=== PATIENT | female | born 1970 | race African-American/Black ===

== ENCOUNTER 2018-04-09 13:12 | Emergency (ER) | payer OTHER ==
[2018-04-09 13:17] VITALS: BP 108/63; PULSE 96; TEMP 98.3; BMI 23.3
--- NOTE | 2018-04-09 14:54 | PDOC ---
History of Present Illness - History of Present Illness Initial Comments: 04/09/18 14:47 47 yo F with h/o vertigo, and iron deficient anemia who p/w FERNANDEZ. Patient reports 3 days of non pulsatile, dull, holocranial distribution FERNANDEZ, associated with nausea. Endorses photophobia, lacrimation, sneezing. Denies photpophobia, neck stiffness, vision change. Also endorses lightheadedness x 1 day, which prompted ED encounter. Denies vertiginous symptoms,. but lightheadedness elicited with sudden head movement and improved with resting position. + nausea without vomiting, and parastheias BL LE. Pain not improved with Ibuprofen x 2 days. Patient with h/o symptomatic anemia requiring admission, but not transfusions. Patient denies neck stiffness, neck pain, vision loss, tinnitus, hearing loss, F/C, CP, cough, wheezing, SOB, urinary complaints, abdominal pain, diarrhea, constipation, weakness PMHx: as noted above ROS: as noted SHx: Denies Etoh, tobacco, IVDA. Allergies: NKDA <Roberto Duque - Last Filed: 04/09/18 18:59> <Niko Wheeler - Last Filed: 04/09/18 19:53> - General Chief Complaint: Headache Stated Complaint: HEADACHE Time Seen by Provider: 04/09/18 13:42 Past History - Past Medical History Anemia: Yes (Low platelets) COPD: No - Suicide/Smoking/Psychosocial Hx Smoking History: Never smoked Number of Cigarettes Smoked Daily: 0 Information on smoking cessation initiated: No Hx Alcohol Use: No Drug/Substance Use Hx: No Substance Use Type: None <Roberto Duque - Last Filed: 04/09/18 18:59> <Niko Wheeler - Last Filed: 04/09/18 19:53> - Past Medical History Allergies/Adverse Reactions: Allergies Allergy/AdvReac Type Severity Reaction Status Date / Time No Known Allergies Allergy Verified 04/09/18 13:17 Home Medications: Ambulatory Orders Ferrous Sulfate [Feosol] 325 mg PO BID #30 tablet 04/29/14 Cholecalciferol (Vitamin D3) [Vitamin D3] 0 unit PO WEEKLY 07/12/14 Ferrous Sulfate 325 mg PO TID 7 Days #21 tablet MDD 3 tab 04/09/18 Review of Systems - Review of Systems Comments:: 04/09/18 14:58 GENERAL/CONSTITUTIONAL: No fever or chills. No weakness. HEAD, EYES, EARS, NOSE AND THROAT: No change in vision. No ear pain or discharge. No sore throat. CARDIOVASCULAR: No chest pain or shortness of breath RESPIRATORY: No cough, wheezing, or hemoptysis. GASTROINTESTINAL: + nausea. No diarrhea or constipation. GENITOURINARY: No dysuria, frequency, or change in urination. MUSCULOSKELETAL: No joint or muscle swelling or pain. No neck or back pain. SKIN: No rash NEUROLOGIC: + Headache, dizziness, vertigo, change in strength/sensation. No loss of consciousness. ENDOCRINE: No increased thirst. No abnormal weight change HEMATOLOGIC/LYMPHATIC: + anemia. No easy bleeding, or history of blood clots. ALLERGIC/IMMUNOLOGIC: No hives or skin allergy. <Roberto Duque - Last Filed: 04/09/18 18:59> *Physical Exam - Vital Signs Last Vital Signs Temp Pulse Resp BP Pulse Ox 98.3 F 96 H 18 108/63 100 04/09/18 13:15 04/09/18 13:15 04/09/18 13:15 04/09/18 13:15 04/09/18 13:15 - Physical Exam Comments: 04/09/18 14:59 GENERAL: Awake, alert, and fully oriented, in no acute distress HEAD: No signs of trauma, normocephalic, atraumatic EYES: PERRLA, EOMI, sclera anicteric, conjunctiva clear ENT: Auricles normal inspection, hearing grossly normal, nares patent, oropharynx clear without exudates. Moist mucosa NECK: Normal ROM, supple, no lymphadenopathy, JVD, or masses LUNGS: No distress, speaks full sentences, clear to auscultation bilaterally HEART: Regular rate and rhythm, normal S1 and S2, no murmurs, rubs or gallops, peripheral pulses normal and equal bilaterally. EXTREMITIES : Normal inspection, Normal range of motion, no edema. No clubbing or cyanosis. NEUROLOGICAL: + Dizziness reproducible with lateral neck rotation. Absent nystagmus. Cranial nerves II through XII grossly intact. JENNIFER, and HTS intact. Absent dysmetria on FTN. Normal speech, normal gait, no focal sensorimotor deficits SKIN: Warm, Dry, normal turgor, no rashes or lesions noted <Roberto Duque - Last Filed: 04/09/18 18:59> - Vital Signs Last Vital Signs Temp Pulse Resp BP Pulse Ox 98.3 F 96 H 18 108/63 100 04/09/18 13:15 04/09/18 13:15 04/09/18 13:15 04/09/18 13:15 04/09/18 13:15 <Niko Wheeler - Last Filed: 04/09/18 19:53> ED Treatment Course - LABORATORY CBC & Chemistry Diagram: 04/09/18 15:32 04/09/18 15:32 <Roberto Duque - Last Filed: 04/09/18 18:59> - LABORATORY CBC & Chemistry Diagram: 04/09/18 15:32 04/09/18 15:32 - ADDITIONAL ORDERS Additional order review: Laboratory Results 04/09/18 04/09/18 15:32 15:32 Sodium 139 Potassium 4.4 Chloride 107 Carbon Dioxide 25 Anion Gap 7 L BUN 10 Creatinine 0.7 Creat Clearance w eGFR > 60 Random Glucose 96 Calcium 8.6 Total Bilirubin 0.2 AST 13 L ALT 13 Alkaline Phosphatase 41 L Total Protein 7.7 Albumin 3.7 Serum , Qual Negative 04/09/18 15:32 RBC 3.14 L MCV 75.4 L MCHC 31.5 L RDW 16.9 H MPV 9.9 D Neutrophils % 71.5 Lymphocytes % 21.6 D Monocytes % 5.2 Eosinophils % 1.0 D Basophils % 0.7 - Medications Given in the ED: ED Medications Discontinued Medications Generic Name Dose Route Start Last Admin Trade Name Bcq PRN Reason Stop Dose Admin Acetaminophen 1,000 mg 04/09/18 14:56 04/09/18 15:49 Tylenol - PO 04/09/18 14:57 Not Given ONCE ONE Acetaminophen 1,000 mg 04/09/18 14:55 04/09/18 15:48 Ofirmev Injection - IVPB 04/09/18 14:56 1,000 mg ONCE ONE Administration Diphenhydramine HCl 25 mg 04/09/18 14:56 04/09/18 15:48 Benadryl - PO 04/09/18 14:57 25 mg ONCE ONE Administration Sodium Chloride 1,000 mls @ 1,000 mls/hr 04/09/18 15:05 04/09/18 15:49 Normal Saline - IV 04/09/18 16:04 1,000 mls/hr ASDIR STA Administration Meclizine HCl 25 mg 04/09/18 16:51 04/09/18 17:33 Antivert - PO 04/09/18 16:52 25 mg ONCE ONE Administration Metoclopramide HCl 10 mg 04/09/18 14:56 04/09/18 15:48 Reglan - PO 04/09/18 14:57 10 mg ONCE ONE Administration <Niko Wheeler - Last Filed: 04/09/18 19:53> Medical Decision Making - Medical Decision Making 04/09/18 14:58 47 yo F with h/o vertigo, and iron deficient anemia who p/w headache and lightheadedness. VSS, AF. Absent neuro deficits. Possible vertigo, likely peripheral vs. central d/t positional nature, and absent symptoms at rest. Will consider BPPV. Low suspicion CVA/TIA. Will also consider tension type FERNANDEZ vs. migraine without aura. Low suspicion SAH, meningitis. Will assess for anemia, electrolyte abnml, toxic or metabolic derangements, or acid-base disturbances. ED Course: CBC,CMP, Urine preg, UA Reglan, diphenhydramine, Tylenol, NS 04/09/18 18:06 Patient with continued FERNANDEZ 04/09/18 18:07 H/H: 7.5/23.6 ( prior iron transfusion at H/H: 7.1/22.8 ) CMP: Unremarkable HCG: neg 04/09/18 18:12 Contacted Heme/Onc general practitioner answering service. Awaiting call back. Per Dr. Driver. Patient to recieve iron supplementation PO, but will take 1 week to increase H/H vs. patient receiving PRBC for symptomatic anemia. 04/09/18 19:01 Iron supplementation sent to pharmacy. Patient symptoms improved. Advised to f/ u with PMD. <Roberto Duque - Last Filed: 04/09/18 18:59> *DC/Admit/Observation/Transfer - Attestations Physician Attestion: 04/09/18 19:02 I attest to the information provided in this note. <Roberto Duque - Last Filed: 04/09/18 18:59> <Niko Wheeler - Last Filed: 04/09/18 19:53> Diagnosis at time of Disposition: Vertigo Anemia Qualifiers: Anemia type: iron deficiency Iron deficiency anemia type: inadequate dietary iron intake Qualified Code(s): D50.8 - Other iron deficiency anemias - Prescriptions Prescriptions: Ferrous Sulfate 325 mg PO TID 7 Days #21 tablet MDD 3 tab - Patient Instructions Printed Discharge Instructions: DI for Iron Deficiency Anemia-Adult Additional Instructions: Please return to the emergency department with any new or worsening symptoms or concerns. Please follow up with your primary care physician within 72 hours. Please take iron three times per day. - Post Discharge Activity Forms/Work/School Notes: Back to Work
[2018-04-09] MEDS ORDERED: ACETAMINOPHEN 1000 MG/100 ML VIAL (NON FORMULARY) IVPB ONE (14:55)
[2018-04-09] MEDS ORDERED: METOCLOPRAMIDE HCL 10 MG TABLET (FP) PO ONE (14:56)
[2018-04-09] MEDS ORDERED: diphenhydrAMINE HCL 25 MG CAPSULE (FP) PO ONE ×2 (14:56→15:35)
[2018-04-09] MEDS ORDERED: ACETAMINOPHEN 500 MG TABLET (FP) PO ONE (14:56)
[2018-04-09] MEDS ORDERED: SODIUM CHLORIDE 1,000 ML IV STA (15:05)
[2018-04-09] MEDS ORDERED: METOCLOPRAMIDE HCL INJECTION 10 MG/2 ML VIAL ONE (15:34)
[2018-04-09] MEDS ORDERED: ACETAMINOPHEN INJECTION 100 ML IVPB ONE (15:35)
--- NOTE | 2018-04-09 15:41 | PDOC ---
Attending Attestation - Resident Resident Name: NetoDarrylRoberto - ED Attending Attestation I have performed the following: I have examined & evaluated the patient, The case was reviewed & discussed with the resident, I agree w/resident's findings & plan, Exceptions are as noted - HPI HPI: 04/09/18 16:02 47 year old female patient with history of intermittent chronic headaches, vertigo, vitamin B-12 and iron deficiency presents with headache and dizziness. Patient reports that she has had these symptoms multiple times prior in the past. Stated that recently she developed a tension-like headache with photophobia. However no neck stiffness or fevers. Stated that she had associated vertigo and dizziness. Has not taken any medications along with it. Denies recent illnesses, fevers, chills, cough, vomiting, diarrhea. Came to the ER for further evaluation. - Physicial Exam PE: 04/09/18 16:03 GENERAL: Awake, alert, and fully oriented, in no acute distress HEAD: No signs of trauma EYES: EOMI, sclera anicteric, conjunctiva clear ENT: Auricles normal inspection, hearing grossly normal, nares patent, NECK: Normal ROM, supple, no lymphadenopathy LUNGS: Breath sounds equal, clear to auscultation bilaterally. No wheezes, and no crackles HEART: Regular rate and rhythm, normal S1 and S2, no murmurs, rubs or gallops ABDOMEN: Soft, nontender. No guarding, no rebound. No masses EXTREMITIES: Normal range of motion, no edema. No clubbing or cyanosis. No cords, erythema, or tenderness NEUROLOGICAL: Cranial nerves II through XII intact. Normal speech, 5/5 strength upper and lower extremities. Sensation intact throughout. No pronator drift. FTN normal. SKIN: Warm, Dry, normal turgor, no rashes or lesions noted. - Medical Decision Making 04/09/18 16:05 Vital Signs Temp Pulse Resp BP Pulse Ox 98.3 F 96 H 18 108/63 100 04/09/18 13:15 04/09/18 13:15 04/09/18 13:15 04/09/18 13:15 04/09/18 13:15 I suspect patient likely has migraine features and peripheral vertigo. We'll treat symptoms with medications and reassess. If the workup is unremarkable the patient reports feeling better, we'll discharge her and have her follow-up with an outpatient neurologist. 04/09/18 17:38 CBC, BMP 04/09/18 15:32 04/09/18 15:32 CMP Sodium 139 mmol/L (136-145) 04/09/18 15:32 Potassium 4.4 mmol/L (3.5-5.1) 04/09/18 15:32 Chloride 107 mmol/L (98-107) 04/09/18 15:32 Carbon Dioxide 25 mmol/L (21-32) 04/09/18 15:32 Anion Gap 7 MMOL/L (8-16) L 04/09/18 15:32 BUN 10 mg/dL (7-18) 04/09/18 15:32 Creatinine 0.7 mg/dL (0.55-1.02) 04/09/18 15:32 Creat Clearance w eGFR > 60 (>60) 04/09/18 15:32 Random Glucose 96 mg/dL (74-106) 04/09/18 15:32 Calcium 8.6 mg/dL (8.5-10.1) 04/09/18 15:32 Total Bilirubin 0.2 mg/dL (0.2-1.0) 04/09/18 15:32 AST 13 U/L (15-37) L 04/09/18 15:32 ALT 13 U/L (12-78) 04/09/18 15:32 Alkaline Phosphatase 41 U/L (45-117) L 04/09/18 15:32 Total Protein 7.7 g/dl (6.4-8.2) 04/09/18 15:32 Albumin 3.7 g/dl (3.4-5.0) 04/09/18 15:32 Serum , Qual Negative 04/09/18 15:32 Hgb is 7.5 On on her prior blood work from several years ago, the patient has noted to have hemoglobin in the mid sevens. The patient did report prior that she was told she may need blood transfusions but in all cases she has never received the punctures fusion. Given the circumstances, will touch base with the patient. Patient reports that since 0.5 is around her baseline, will discharge patient with private care physician follow-up if her headache and vertigo symptoms have improved. If the patient reports that this is new, will discuss findings in regards to transfusing the patient. 04/09/18 18:23 Pt states that she has been given IV infusion of iron before for these situations. And the patient's headache has not improved. Will trial fiorcet. Consult hematology for further disposition regarding the anemia. 04/09/18 18:58 Dr. Duque had spoken with Dr. Gregory. Dr. Gregory states that patient can get either PRBC or PO iron. Pt prefers PO iron and would like to go home. Pt states that she feels well enough to go home. Will d/c her home with follow up with neurology and hematology.
[2018-04-09 16:33] LABS: ALBUMIN 3.7 g/dl (3.4-5.0); ALK PHOS 41 U/L (45-117); ANION GAP 7 MMOL/L (8-16); BILIRUBIN,TOTAL 0.2 mg/dL (0.2-1.0); BLOOD UREA NITROGEN 10 mg/dL (7-18); CALCIUM 8.6 mg/dL (8.5-10.1); CHLORIDE 107 mmol/L (98-107); CO2 25 mmol/L (21-32); CREATININE 0.7 mg/dL (0.55-1.02); GLUCOSE,RANDOM 96 mg/dL (74-106); POTASSIUM 4.4 mmol/L (3.5-5.1); SGOT/AST 13 U/L (15-37); SGPT/ALT 13 U/L (12-78); SODIUM 139 mmol/L (136-145); TOT PROT 7.7 g/dl (6.4-8.2)
[2018-04-09] MEDS ORDERED: MECLIZINE HCL 25 MG TABLET (FP) PO ONE (16:51)
[2018-04-09] MEDS ORDERED: MECLIZINE HCL 25 MG TABLET (FP) ONE (17:19)
[2018-04-09 17:23] LABS: BASO % 0.7 % (0-2.0); HEMATOCRIT 23.6 % (32.4-45.2); HEMOGLOBIN 7.5 GM/dL (10.7-15.3); LYMPH % 21.6 % (8-40); MCH 23.8 pg (25.7-33.7); MCHC 31.5 g/dl (32.0-36.0); MEAN CELL VOLUME 75.4 fl (80-96); MEAN PLT VOLUME 9.9 fl (7.5-11.1); MONO % 5.2 % (3.8-10.2); NEUT % 71.5 % (42.8-82.8); PLATELET COUNT 265 K/MM3 (134-434); RBC 3.14 M/mm3 (3.60-5.2); RDW 16.9 % (11.6-15.6); WHITE BLOOD COUNT 6.5 K/mm3 (4.0-10.0)
[2018-04-09] MEDS ORDERED: ACETAMINOPHEN/CAFFEINE/BUTALBITAL 1 TAB PO ONE (18:06)
[2018-04-09] MEDS ORDERED: ACETAMINOPHEN/CAFFEINE/BUTALBITAL 1 TAB ONE (19:55)
== END 2018-04-09 20:00 | disposition home or self-care (01) ==
LOC: JER 13:12
PROC: 3E0337Z Introduction of Electrolytic and Water Balance Substance into Peripheral Vein, Percutaneous Approach (ICD-10-PCS; principal; 2018-04-09)
PROC: 3E033NZ Introduction of Analgesics, Hypnotics, Sedatives into Peripheral Vein, Percutaneous Approach (ICD-10-PCS; 2018-04-09)
DX: D50.8 Other iron deficiency anemias (principal); R42 Dizziness and giddiness
CPT/HCPCS: 36415; 80053; 84703; 85025; 96361; 96374; 99282-25; J0131; J7030

== ENCOUNTER 2020-04-02 10:11 | Emergency (ER) | payer OTHER ==
[2020-04-02 10:18] VITALS: TEMP 98.5; BMI 23.8
--- NOTE | 2020-04-02 10:37 | PDOC ---
History of Present Illness - General Chief Complaint: Lightheaded Stated Complaint: VERTIGO Time Seen by Provider: 04/02/20 10:36 - History of Present Illness Initial Comments: HPI: 49yo F with PMH of vertigo, fibroids, anemia, thyroid disorder presenting with vertigo. Patient reports she has had vertigo like this previously. She states she was treated with an iron infusion which improved her symptoms because she associates her vertigo with her anemia. Patient has a baseline hemoglobin of 8 and is supposed to take iron pills but is not adherent to this therapy. Had two heavy menstrual periods this month, likely due to fibroids. 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 Denies syncope or falls, but feels like she is too unbalanced to walk without assistance. This episode of syncope started on Wednesday and worsened going into Wednesday. Patient has been nauseous and unable to tolerate po. Had one episode of NBNB emesis today. Denies fever, but endorsing chills. PCP: Dr. Hurley (unknown last name) pumper helper: vertigo ROS: Constitutional: no fever, +chills HEENT: no throat pain, no dysphagia Cardiovascular: no chest pain, no palpitations Respiratory: no cough, no shortness of breath Gastrointestinal: no abdominal pain, +nausea Genitourinary: no dysuria, no hematuria Musculoskeletal: no myalgia, no arthralgia Skin: no rash, no itching Neurologic: no headache, +vertigo Psych: no agitation, no anxiety PE: General: Awake, alert, and fully oriented, laying in bed with sunglasses on Head: No signs of trauma Eyes: EOMI, sclera anicteric ENT: Moist mucus membranes Neck: Normal ROM, supple Lungs: Lungs clear, Normal breath sounds Cardio: Regular rhythm, S1 and S2 present Abdomen: Soft, nontender. No guarding, no rebound, no masses Extremities: Normal range of motion, Distal pulses present Skin: Warm, Dry, normal turgor Neurologic: Cranial nerves II through XII intact. Normal speech, sensation, strength, [id number] coordination. Patient deferred gait exam. ED Course/MDM: DDX including but not limited to vertigo, peripheral vs central; brain bleed; anemia; metabolic derangement Labs, EKG Reglan Fluids Meclizine Will reassess 04/02/20 11:22 EKG: rate 81, QTc 455, sinus CBC WBC 4.9 K/mm3 (4.0-10.0) 04/02/20 11:00 RBC 3.54 M/mm3 (3.60-5.2) L 04/02/20 11:00 Hgb 10.5 GM/dL (10.7-15.3) L 04/02/20 11:00 Hct 31.7 % (32.4-45.2) L D 04/02/20 11:00 MCV 89.7 fl (80-96) 04/02/20 11:00 MCH 29.8 pg (25.7-33.7) D 04/02/20 11:00 MCHC 33.2 g/dl (32.0-36.0) 04/02/20 11:00 RDW 13.9 % (11.6-15.6) D 04/02/20 11:00 Plt Count 217 K/MM3 (134-434) 04/02/20 11:00 MPV 8.7 fl (7.5-11.1) D 04/02/20 11:00 Absolute Neuts (auto) 4.0 K/mm3 (1.5-8.0) 04/02/20 11:00 Neutrophils % 81.5 % (42.8-82.8) 04/02/20 11:00 Lymphocytes % 12.8 % (8-40) D 04/02/20 11:00 Monocytes % 4.9 % (3.8-10.2) 04/02/20 11:00 Eosinophils % 0.4 % (0-4.5) 04/02/20 11:00 Basophils % 0.4 % (0-2.0) 04/02/20 11:00 Nucleated RBC % 0 % (0-0) 04/02/20 11:00 No leukocytosis Anemia present but above patient's baseline CMP Sodium 138 mmol/L (136-145) 04/02/20 11:00 Potassium 3.7 mmol/L (3.5-5.1) 04/02/20 11:00 Chloride 106 mmol/L (98-107) 04/02/20 11:00 Carbon Dioxide 20 mmol/L (21-32) L 04/02/20 11:00 Anion Gap 11 MMOL/L (8-16) 04/02/20 11:00 BUN 8.8 mg/dL (7-18) 04/02/20 11:00 Creatinine 0.8 mg/dL (0.55-1.3) 04/02/20 11:00 Est GFR (CKD-EPI)AfAm 98.93 04/02/20 11:00 Est GFR (CKD-EPI)NonAf 85.36 04/02/20 11:00 Random Glucose 94 mg/dL (74-106) 04/02/20 11:00 Calcium 9.2 mg/dL (8.5-10.1) 04/02/20 11:00 Total Bilirubin 0.4 mg/dL (0.2-1) 04/02/20 11:00 AST 17 U/L (15-37) 04/02/20 11:00 ALT 15 U/L (13-61) 04/02/20 11:00 Alkaline Phosphatase 43 U/L (45-117) L 04/02/20 11:00 Total Protein 7.4 g/dl (6.4-8.2) 04/02/20 11:00 Albumin 3.7 g/dl (3.4-5.0) 04/02/20 11:00 Electrolytes unremarkable Normal Cr No transaminitis Patient with continued dizziness; still unable to ambulate without significant support CT Head ordered 2mg valium ordered Will reassess 04/02/20 16:54 Patient reports significant improvement in her dizziness Sunglasses are now off Still ambulating with assistance, but asking to go home. Says she has family members who will help her. To follow up with primary care physician Return precautions Stable for discharge 04/02/20 18:52 Past History - Medical History Allergies/Adverse Reactions: Allergies Allergy/AdvReac Type Severity Reaction Status Date / Time No Known Allergies Allergy Verified 04/02/20 10:15 Home Medications: Ambulatory Orders Ferrous Sulfate [Feosol] 325 mg PO BID #30 tablet 04/29/14 Cholecalciferol (Vitamin D3) [Vitamin D3] 0 unit PO WEEKLY 07/12/14 Ferrous Sulfate 325 mg PO TID 7 Days #21 tablet MDD 3 tab 04/09/18 Meclizine HCl [Antivert -] 25 mg PO DAILY PRN #14 tablet 04/02/20 Anemia: Yes (Low platelets) COPD: No - Reproductive History Is Patient Now?: No - Immunization History Immunization Up to Date: Yes - Psycho-Social/Smoking History Smoking History: Never smoked Number of Cigarettes Smoked Daily: 0 - Substance Abuse Hx (Audit-C & DAST Scrn) How often the patient has a drink containing alcohol: Never Score: In Men: 4 or > Positive; In Women: 3 or > Positive: 0 Screen Result (Pos requires Nsg. Audit-10AR): Negative In the last yr the pt used illegal drug/Rx for NonMed reason: No Score: Yes response is considered Positive: 0 Screen Result (Positive result requires Nsg. DAST-10): Negative *Physical Exam - Vital Signs Last Vital Signs Temp Pulse Resp BP Pulse Ox 98.5 F 86 20 110/62 100 04/02/20 10:16 04/02/20 10:16 04/02/20 10:16 04/02/20 10:16 04/02/20 10:16 ED Treatment Course - LABORATORY CBC & Chemistry Diagram: 04/02/20 11:00 04/02/20 11:00 Discharge - Discharge Information Problems reviewed: Yes Clinical Impression/Diagnosis: Vertigo Condition: Improved Disposition: HOME - Additional Discharge Information Prescriptions: Meclizine HCl [Antivert -] 25 mg PO DAILY PRN #14 tablet PRN Reason: Vertigo - Follow up/Referral Referrals: Ambreen Clay MD [Primary Care Provider] - - Patient Discharge Instructions Patient Printed Discharge Instructions: DI for Vertigo Additional Instructions: You came into the emergency department for vertigo. Labs and CT imaging did not show acute pathology. You received medications (reglan, meclizine, and valium) while you were here which helped improve your symptoms. Prescription sent to your pharmacy. Take as instructed. Follow-up with your primary care physician in the next 2-3 days to discuss this ED visit and to further evaluate your symptoms. Call and make an appointment at the number provided. Your workup is not complete until you do so. Immediate medical attention is required if you have severe headache, high fever, persistent vomiting, changes in vision, seizures, focal weakness, or any other new or concerning symptoms. If you think you are having an emergency, call for emergency medical services or present to the emergency department right away. - Post Discharge Activity
[2020-04-02] MEDS ORDERED: METOCLOPRAMIDE HCL INJECTION 10 MG/2 ML VIAL IVPUSH ONE (10:59)
[2020-04-02] MEDS ORDERED: SODIUM CHLORIDE 1,000 ML IV STA (10:59)
[2020-04-02] MEDS ORDERED: METOCLOPRAMIDE HCL INJECTION 10 MG/2 ML VIAL ONE (11:06)
[2020-04-02] MEDS ORDERED: MECLIZINE HCL 25 MG TABLET (FP) PO ONE (11:20)
[2020-04-02 11:26] LABS: BASO % 0.4 % (0-2.0); EOS % 0.4 % (0-4.5); HEMATOCRIT 31.7 % (32.4-45.2); HEMOGLOBIN 10.5 GM/dL (10.7-15.3); LYMPH % 12.8 % (8-40); MCH 29.8 pg (25.7-33.7); MCHC 33.2 g/dl (32.0-36.0); MEAN CELL VOLUME 89.7 fl (80-96); MEAN PLT VOLUME 8.7 fl (7.5-11.1); MONO % 4.9 % (3.8-10.2); NEUT % 81.5 % (42.8-82.8); PLATELET COUNT 217 K/MM3 (134-434); RBC 3.54 M/mm3 (3.60-5.2); RDW 13.9 % (11.6-15.6); WHITE BLOOD COUNT 4.9 K/mm3 (4.0-10.0)
[2020-04-02 12:00] LABS: ALBUMIN 3.7 g/dl (3.4-5.0); BILIRUBIN,TOTAL 0.4 mg/dL (0.2-1); BLOOD UREA NITROGEN 8.8 mg/dL (7-18); CALCIUM 9.2 mg/dL (8.5-10.1); CREATININE 0.8 mg/dL (0.55-1.3); POTASSIUM 3.7 mmol/L (3.5-5.1); TOT PROT 7.4 g/dl (6.4-8.2)
[2020-04-02] MEDS ORDERED: MECLIZINE HCL 25 MG TABLET (FP) ONE (12:04)
--- NOTE | 2020-04-02 13:48 | PDOC ---
Documentation entered by Maurilio Souza SCRIBE, acting as scribe for Yandy Falcon MD. Yandy Falcon MD: This documentation has been prepared by the Loyd marshall inMaurilio SCRIBE, under my direction and personally reviewed by me in its entirety. I confirm that the documentation accurately reflects all work, treatment, procedures, and medical decision making performed by me. Attending Attestation - Resident Resident Name: Monika Duran - ED Attending Attestation I have performed the following: I have examined & evaluated the patient, The case was reviewed & discussed with the resident, I agree w/resident's findings & plan, Exceptions are as noted - HPI HPI: 04/02/20 11:10 The patient is a 49 year old female with a significant past medical history of intermittent chronic headaches, hypothyroidism, vertigo, vitamin B-12 and iron deficiency (does not regularly iron) who presents to the emergency department for evaluation of lightheadedness that began two days ago but has worsened today. The patient reports her vertigo is often instigated by anemia. She endorses room spinning and feeling unsteady when she opens her eyes associated with decreased PO intake secondary to nausea and one episode of NBNB vomiting. The patient denies chest/abdominal/back pain, cough, and shortness of breath. Denies fever, chills, nausea, vomiting, and/or any GI symptoms. Denies any symptoms. Denies any other symptoms. Allergies: NKDA Social Hx: None reported PCP: Dr. Chowdhury - Physicial Exam PE: 04/02/20 10:44 GENERAL: Awake, alert, and fully oriented, in no acute distress HEAD: No signs of trauma NECK: Normal ROM, supple, no lymphadenopathy, JVD, or masses LUNGS: Breath sounds equal, clear to auscultation bilaterally. No wheezes, and no crackles HEART: Regular rate and rhythm, normal S1 and S2, no murmurs, rubs or gallops ABDOMEN: Soft, nontender, normoactive bowel sounds. No guarding, no rebound. No masses EXTREMITIES: Normal range of motion, no edema. No clubbing or cyanosis. No cords, erythema, or tenderness NEUROLOGICAL: Cranial nerves II through XII grossly intact. Normal speech SKIN: Warm, Dry, normal turgor, no rashes or lesions noted. 04/02/20 13:18 - Medical Decision Making 04/02/20 13:18 Pt presents to the ED complaining of acute exacerbation of her chronic vertigo that she attributes to severe anemia. No improvement in symptoms with meclizine. Labs show no anemia. Will treat with antiemetics and valium and reassess. Will consider admission if symptoms do not improve. 04/02/20 13:47 Discharge - Discharge Information Problems reviewed: Yes Clinical Impression/Diagnosis: Vertigo - Follow up/Referral Referrals: Ambreen Clay MD [Primary Care Provider] - - Patient Discharge Instructions - Post Discharge Activity
[2020-04-02 15:10] VITALS: BP 116/60; PULSE 68
[2020-04-02] MEDS ORDERED: diazePAM CARPU-JECT 10 MG/2 ML DISP.SYRIN IVPUSH ONE (15:36)
[2020-04-02] MEDS ORDERED: diazePAM CARPU-JECT 10 MG/2 ML DISP.SYRIN ONE (15:50)
--- NOTE | 2020-04-03 10:26 | EKG ---
Test Reason : Blood Pressure : / mmHG Vent. Rate : 081 BPM Atrial Rate : 081 BPM P-R Int : 152 ms QRS Dur : 074 ms QT Int : 392 ms P-R-T Axes : 069 058 052 degrees QTc Int : 455 ms NORMAL SINUS RHYTHM NORMAL ECG WHEN COMPARED WITH ECG OF 12-JUL-2014 15:23, NO SIGNIFICANT CHANGE WAS FOUND Confirmed by MD Fung Daniel ([id number]) on 04/03/2020 10:26:26 AM Referred By: Confirmed By:Maciel Fung MD
== END 2020-04-02 18:50 | disposition home or self-care (01) ==
LOC: JER 10:11
PROC: 3E033NZ Introduction of Analgesics, Hypnotics, Sedatives into Peripheral Vein, Percutaneous Approach (ICD-10-PCS; principal; 2020-04-02)
PROC: 3E033GC Introduction of Other Therapeutic Substance into Peripheral Vein, Percutaneous Approach (ICD-10-PCS; 2020-04-02)
PROC: 3E0337Z Introduction of Electrolytic and Water Balance Substance into Peripheral Vein, Percutaneous Approach (ICD-10-PCS; 2020-04-02)
DX: H81.10 Benign paroxysmal vertigo, unspecified ear (principal)
CPT/HCPCS: 36415; 70450-TC; 80053; 85025; 86850; 86900; 86901; 93005; 93010; 99285-25

== ENCOUNTER 2020-04-06 18:19 | Emergency (ER) | payer OTHER ==
[2020-04-06 18:31] VITALS: BP 99/58; PULSE 82; TEMP 98.1; BMI 23.8
[2020-04-06] MEDS ORDERED: SODIUM CHLORIDE 0.9% 500 ML INFUS.BAG IV ONE (18:39)
[2020-04-06] MEDS ORDERED: METOCLOPRAMIDE HCL INJECTION 10 MG/2 ML VIAL IVPUSH ONE (18:39)
--- NOTE | 2020-04-06 18:43 | PDOC ---
Documentation entered by Judd Jimenes SCRIBE, acting as scribe for Mavis Nash MD. Mavis Nash MD: This documentation has been prepared by the santinoeYudy Aaron, SCRIBE, under my direction and personally reviewed by me in its entirety. I confirm that the documentation accurately reflects all work, treatment, procedures, and medical decision making performed by me. History of Present Illness - General Chief Complaint: Lightheaded Stated Complaint: DIZZINESS History Source: Patient Exam Limitations: No Limitations - History of Present Illness Initial Comments: 04/06/20 19:03 The patient is a 49 year old female with a significant PMH of vertigo, fibroids, constipation, anemia, thyroid disorder, intermittent chronic headaches, vitamin B-12 and iron deficiency who presents to the emergency department for lightheadedness that began six days ago. Patient reports an acute onset of lightheadedness on Wednesday (6 days ago) after eating chicken cutlet, and symptoms worsened on Wednesday. Patient was seen at [place] [facility] on Wednesday and was prescribed meclizine for vertigo symptoms, without relief, was given valium in the ED with relief. The patient was discharged with meclizine prescribed, patient denies taking the medication at home because it didnt work. Patient endorses 1 episode of NBNB vomiting on Wednesday and notes that she cannot eat much secondary to nausea. Patient claims pain is worsened with quick movements of the head. Patient reports associated symptom of a headache, swirling sensation and bilateral eye strain. Denies fever, chills, cough, runny nose, chest pain, SOB, palpitation, dizziness, weakness, N, V, D, abdominal pain, bladder and bowel problems, leg swelling. Denies dysuria, frequency, urgency and hematuria. Denies ear pain, tinnitus or ear wax problem. Denies neck or back pain. Denies recent sinus infection. No sick contacts or travel. No new changes in medications. Denies recent trauma, head injury. Allergies: None Past Medical History: vertigo, fibroids, anemia (requiring iron infusion in the past), chronic constipation, thyroid disorder, intermittent chronic headaches, vitamin B-12 and iron deficiency Social history: Lives with family. No tobacco, ETOH or drug use. Surgical history: None reported Meds: as documented in EMR PMD: Dr. Mei Ghosh Past History - Medical History Allergies/Adverse Reactions: Allergies Allergy/AdvReac Type Severity Reaction Status Date / Time No Known Allergies Allergy Verified 04/02/20 10:15 Home Medications: Ambulatory Orders Ferrous Sulfate [Feosol] 325 mg PO BID #30 tablet 04/29/14 Cholecalciferol (Vitamin D3) [Vitamin D3] 0 unit PO WEEKLY 07/12/14 Ferrous Sulfate 325 mg PO TID 7 Days #21 tablet MDD 3 tab 04/09/18 Meclizine HCl [Antivert -] 25 mg PO DAILY PRN #14 tablet 04/02/20 Anemia: Yes COPD: No Disorders: Yes (fibroids) Thyroid Disease: Yes - Reproductive History Is Patient Now?: No - Immunization History Immunization Up to Date: Yes - Psycho-Social/Smoking History Smoking History: Never smoked Have you smoked in the past 12 months: No Number of Cigarettes Smoked Daily: 0 Information on smoking cessation initiated: No - Substance Abuse Hx (Audit-C & DAST Scrn) How often the patient has a drink containing alcohol: Never Score: In Men: 4 or > Positive; In Women: 3 or > Positive: 0 Screen Result (Pos requires Nsg. Audit-10AR): Negative In the last yr the pt used illegal drug/Rx for NonMed reason: No Score: Yes response is considered Positive: 0 Screen Result (Positive result requires Nsg. DAST-10): Negative Review of Systems - Review of Systems Comments:: 04/06/20 19:01 GENERAL/CONSTITUTIONAL: No fever or chills. No weakness. no sweats. HEAD, EYES, EARS, NOSE AND THROAT: +eye strain. No change in vision or hearing. No ear pain or discharge. No sore throat or mouth pain. No difficulty swallowing. No congestion. CARDIOVASCULAR: No chest pain or palpitations, syncope or edema. RESPIRATORY: No SOB, cough, wheezing, or hemoptysis. GASTROINTESTINAL + Vomiting. No abdominal pain. No diarrhea. No bloody stools. GENITOURINARY: No hematuria, dysuria, frequency, urgency or other changes. MUSCULOSKELETAL: No joint or muscle swelling or pain. No decreased range of motion. No neck or back pain. SKIN: No rash or changes in skin color or lesions. No wounds. NEUROLOGIC: + headache, + dizziness. Alert and oriented appropriately, No loss of consciousness, or change in strength/sensation. No gait instability. HEMATOLOGIC/LYMPHATIC: No anemia, easy bruising/bleeding, or history of blood clots. No swollen lymph nodes ALLERGIC/IMMUNOLOGIC: No allergies PSYCH: no anxiety/depression All other systems reviewed and negative, or as documented in HPI. *Physical Exam - Vital Signs Last Vital Signs Temp Pulse Resp BP Pulse Ox 98.1 F 82 18 99/58 L 100 04/06/20 18:20 04/06/20 18:20 04/06/20 18:20 04/06/20 18:20 04/06/20 18:20 - Physical Exam 04/06/20 19:01 General: Well appearing, awake and alert, NAD. HEENT: NCAT, PERRL, EOMI, clear conjunctiva, anicteric, moist mucous membranes, clear oropharynx, no oral lesions. TMs are clear. Neck: neck supple, FROM Resp: CTAB, normal and even respirations, no respiratory distress CVS: RRR, no murmurs, 2+ peripheral pulses throughout, no peripheral edema Abdomen: soft, NTND, no rebound or guarding. No CVAT. Back: nontender, normal inspection and ROM] MSK: no edema, MCGRAW x4, ROM intact. No clubbing or cyanosis. normal bulk and tone. Extremities: no calf tenderness Neuro: Alert, oriented to person time and place. No carotid bruit, CN II-XII grossly intact. Strength prox and distally 5/5 throughout. Sensation grossly i ntact to light touch. MCGRAW x4. No cerebellar signs, no dysmetria, bilateral finger to nose and heel to alexis equal and symmetric. Speech clear. Skin: warm and well perfused, cap refill <2 sec, normal color Medical Decision Making - Medical Decision Making 04/06/20 18:42 Vital Signs Temp Pulse Resp BP Pulse Ox 98.1 F 82 18 99/58 L 100 04/06/20 18:20 04/06/20 18:20 04/06/20 18:20 04/06/20 18:20 04/06/20 18:20 vitals reviewed wnl no fever no focal neuro deficits no trauma mild headache in setting of vertigo labs and lytes from 4 days ago normal. baseline anemia, s/p iron infusion already CT head no acute pathology, doubt intra cranial pathology and defer reimaging will trial ativan, as second line agent, IVF and reglan, reassess s/o to Dr Shah pending reeval and ultimate dispo Discharge - Discharge Information Problems reviewed: Yes Clinical Impression/Diagnosis: Vertigo Condition: Stable - Follow up/Referral Referrals: Mei Ghosh NP [Primary Care Provider] - Amari Hanna MD [Staff Physician] - Kanu Vines MD [Staff Physician] - Bri Bragg MD [Staff Physician] - Indio Monique MD [Staff Physician] - Matheus Howard MD [Staff Physician] - - Patient Discharge Instructions Patient Printed Discharge Instructions: DI for Vertigo, How to Perform [place] Vertigo Exercises, Vertigo (Alternative Therapy) - Post Discharge Activity
[2020-04-06] MEDS ORDERED: LORazepam 2 MG/ML SDV VIAL ONE (18:47)
[2020-04-06] MEDS ORDERED: METOCLOPRAMIDE HCL INJECTION 10 MG/2 ML VIAL ONE (18:48)
--- NOTE | 2020-04-06 19:31 | PDOC ---
*Physical Exam - Vital Signs Last Vital Signs Temp Pulse Resp BP Pulse Ox 98.1 F 82 18 99/58 L 100 04/06/20 18:20 04/06/20 18:20 04/06/20 18:20 04/06/20 18:20 04/06/20 18:20 - Physical Exam 04/06/20 19:26 [id number] with chronic vertigo and chronic anemia, returns 4 days after evaluation of her exacerbated chronic vertigo for repeat evaluation for vertigo. States she has not been taking the meclizine at home, has not had a chance to f/u with referrals yet. Pending re-assessment after medications and dispo decision. ED Treatment Course - Medications Given in the ED: ED Medications Discontinued Medications Generic Name Dose Route Start Last Admin Trade Name Freq PRN Reason Stop Dose Admin Lorazepam 1 mg 04/06/20 18:39 04/06/20 18:54 Ativan Injection - IVPUSH 04/06/20 18:40 1 mg ONCE ONE Administration Metoclopramide HCl 10 mg 04/06/20 18:39 04/06/20 18:56 Reglan Injection - IVPUSH 04/06/20 18:40 10 mg ONCE ONE Administration Sodium Chloride 1,000 ml 04/06/20 18:39 04/06/20 18:45 Normal Saline - IV 04/06/20 18:40 1,000 ml ONCE ONE Administration Medical Decision Making - Medical Decision Making 04/06/20 19:29 Patient states still has mild vertigo but there is no nystagmus on neuro exam, gait normal without ataxia, no assistance needed to ambulate, normal [id number], sensation and motor intact, normal speech, patient states no pain. I do shared decision making with her, she states at this point it feels like her normal chronic vertigo episodes and she is comfortable managing at home with meclizine and a small Rx for valium which I offered to her. She does not feel like this is atypical for her normal episodes. On last assessment, VSS, exam is benign, patient is texting, has a ride to the pharmacy and home. She ambulates out of the dept without difficulty. Discharge - Discharge Information Problems reviewed: Yes Clinical Impression/Diagnosis: Vertigo Condition: Stable Disposition: HOME - Admission No - Additional Discharge Information Prescriptions: Diazepam [Valium] 2 mg PO DAILY PRN #7 tablet MDD 4 mg PRN Reason: Vertigo - Follow up/Referral Referrals: Kanu Vines MD [Staff Physician] - Mei Ghosh NP [Primary Care Provider] - Matheus Howard MD [Staff Physician] - Indio Monique MD [Staff Physician] - Amari Hanna MD [Staff Physician] - Bri Bragg MD [Staff Physician] - - Patient Discharge Instructions Patient Printed Discharge Instructions: Vertigo (Alternative Therapy), DI for Vertigo, How to Perform [place] Vertigo Exercises - Post Discharge Activity
== END 2020-04-06 19:50 | disposition home or self-care (01) ==
LOC: SUPCPDRO 18:19 → FER 18:19
PROC: 3E033NZ Introduction of Analgesics, Hypnotics, Sedatives into Peripheral Vein, Percutaneous Approach (ICD-10-PCS; principal; 2020-04-06)
PROC: 3E033GC Introduction of Other Therapeutic Substance into Peripheral Vein, Percutaneous Approach (ICD-10-PCS; 2020-04-06)
DX: R42 Dizziness and giddiness (principal)
CPT/HCPCS: 96374; 96375; 99284-25

== ENCOUNTER 2024-12-29 14:57 | Emergency (ER) | payer OTHER ==
[2024-12-29 15:11] VITALS: BP 114/60; PULSE 76; RESP 18; TEMP 98; BMI 25.6
[2024-12-29] MEDS ORDERED: AMOX TR/POT CLAV 500MG/125MG TABLETS (FP) ONE (15:58)
[2024-12-29] MEDS ORDERED: KETOROLAC TROMETHAMINE 30 MG/1 ML VIAL ONE (15:58)
[2024-12-29] MEDS ORDERED: AMOXICILLIN 250 MG CAPSULE ONE (16:01)
[2024-12-29] MEDS: AMOXICILLIN 500 MG CAPSULE (FP) PO ONE (16:09)
[2024-12-29] MEDS: KETOROLAC TROMETHAMINE 30 MG/1 ML VIAL IM ONE (16:09)
== END 2024-12-29 16:17 | disposition home or self-care (01) ==
LOC: JERFT 14:57
PROC: 3E0233Z Introduction of Anti-inflammatory into Muscle, Percutaneous Approach (ICD-10-PCS; principal; 2024-12-29)
DX: K05.6 Periodontal disease, unspecified (principal); K08.89 Other specified disorders of teeth and supporting structures; K02.9 Dental caries, unspecified; K06.1 Gingival enlargement; K05.10 Chronic gingivitis, plaque induced
CPT/HCPCS: 99284-25

== ENCOUNTER 2025-01-15 06:40 | Emergency (ER) | payer OTHER ==
[2025-01-15 06:49] VITALS: BP 99/68; PULSE 79; RESP 18; TEMP 98.8; BMI 25.6
[2025-01-15] MEDS: ACETAMINOPHEN 500 MG TABLET (FP) PO ONE (07:45)
[2025-01-15] MEDS ORDERED: ACETAMINOPHEN 500 MG TABLET (FP) ONE (07:53)
[2025-01-15] MEDS ORDERED: DEXAMETHASONE SOD PHOSPHATE 10 MG/1 ML VIAL ONE ×2 (08:13→08:14)
[2025-01-15 08:14] LABS: THROAT:GRP A STREP NOT DETECTED (NOTDETECTED)
[2025-01-15] MEDS: DEXAMETHASONE 4 MG TABLET (FP) PO ONE (08:16)
== END 2025-01-15 08:47 | disposition home or self-care (01) ==
LOC: JERFT 06:40 → JER 06:40 → JERFT 08:47
DX: R07.0 Pain in throat (principal)
CPT/HCPCS: 0241U-QW; 87651; 99283-25; J1100